=== PATIENT | male | born 1975 | race Caucasian/White ===

== ENCOUNTER → 2016-02-27 | Outpatient (CLI) | payer BC | LOC: LAB.O 07:51 | PROVIDERS: ATTEND Urology | DX: R31.29 Other microscopic hematuria (principal) ==

== ENCOUNTER → 2016-02-27 | Outpatient (CLI) | payer BC, SELFPAY ==
--- NOTE | 2016-02-27 08:54 | CT ---
EXAM DESCRIPTION: CT ABDOMEN PELVIS WITHOUT THEN WITH IV CONTRAST CLINICAL HISTORY: MICROHEMATURIA COMPARISON: None Available TECHNIQUE: CT of the abdomen and Pelvis was performed with and without IV contrast. FINDINGS: Pre IV contrast images show a punctate nonobstructing calculus in the superior pole of the right kidney. No additional urinary tract calculus is present. There is no hydronephrosis or perinephric inflammation. Following IV contrast administration, no renal mass is identified period there is no bladder wall thickening period the prostate is at the upper limits of normal size, measuring 5 cm transverse diameter period there is no abdominal aortic aneurysm. No adenopathy, ascites or pneumoperitoneum period no calcified gallstone period there is a small hiatal hernia. The liver, spleen, pancreas and adrenals are unremarkable period no dilated small bowel loops period occasional colonic diverticulosis without diverticulitis. The appendix is normal period there is no suspicious bone lesion period IMPRESSION: Punctate nonobstructing right renal calculus, but no additional abnormality to explain microhematuria. Colonic diverticulosis without diverticulitis. Electronically signed by: Mickey Dodson DO 02/27/2016 08:52
== END ==
LOC: CT 07:51
PROVIDERS: ATTEND Urology
DX: R31.29 Other microscopic hematuria (principal); N20.0 Calculus of kidney; K57.30 Diverticulosis of large intestine without perforation or abscess without bleeding

== ENCOUNTER → 2016-08-26 | Outpatient (CLI) | payer BC | LOC: GMAJ 14:41 | PROVIDERS: ATTEND Family Medicine | DX: R53.83 Other fatigue (principal) ==

== ENCOUNTER → 2016-11-24 | Outpatient (CLI) | payer BC ==
--- NOTE | 2016-11-24 11:13 | MRI ---
Study: MRI of the Right Knee. Indication: [id number] Technique: Multiplanar, multi sequence MRI of the right knee was obtained without intravenous contrast. Comparison: June 03, 2006. FINDINGS: ACL graft redemonstrated. It is slightly attenuated along its anterior margin proximally were a component of chronic low-grade partial-thickness/insertional tearing suspected. There is mild buckling of the graft at this site and a component of impingement on the posterior margin intercondylar notch suspected. No transection. PCL, MCL, and lateral collateral ligament complex intact. Post surgical changes of the patellar tendon without tear. Tendinosis and low-grade attenuation quadriceps tendon insertion. Trace lateral patellar tilt and subluxation. TT-TG distance measures 17 mm. At the central to inferior aspect of the lateral patellar facet there is a prominent 9 linear craniocaudal by 4 where transverse site of grade 4 chondral fissuring. Less pronounced grade 1/2 chondral surface irregularity throughout the patella. Volume loss free edge and undersurface posterior horn and body medial meniscus likely postsurgical with associated degenerative signal changes at these sites as well as subtle recurrent undersurface fraying of the posterior horn/root. Free edge truncation posterior horn/root lateral meniscus likely postsurgical as well as. There is however attenuation of the posterior root attachment and a component of degenerative tearing is suspected but without transection. Compared to the prior there is progressive 4 mm extrusion of the body which is expanded with degenerative signal. Scattered free edge fraying throughout the lateral meniscus. Progressive grade 4 chondrosis and subchondral marrow change at the posterolateral margin of the lateral tibial plateau with mild cortical remodeling. Less pronounced grade 2/3 chondrosis throughout the lateral and medial compartments noted. Moderate size knee effusion. Tiny Brice cyst. No acute fracture. IMPRESSION: ACL graft with suspected impingement at the intercondylar notch where there is mild partial-thickness tearing, likely chronic. Prior partial medial and lateral meniscectomy with multifocal areas of recurrent degenerative tearing as above. Progressed tricompartmental chondrosis as above. Moderate size knee effusion. Electronically signed by: South Rivera MD 11/24/2016 11:11 AM CDT
== END | disposition home or self-care (01) ==
LOC: MRI 06:33
PROVIDERS: ATTEND Family Medicine
DX: S83.241A Other tear of medial meniscus, current injury, right knee, initial encounter (principal); X58.XXXA Exposure to other specified factors, initial encounter

== ENCOUNTER → 2019-10-07 | Outpatient (CLI) | payer BC | END | disposition home or self-care (01) | LOC: GMAJ 10:25 | PROVIDERS: ATTEND Family Medicine | DX: Z12.5 Encounter for screening for malignant neoplasm of prostate (principal) ==